=== PATIENT | male | born 1970 | race Caucasian/White ===

== ENCOUNTER 2017-02-27 07:23 | Emergency (ER) | payer OTHER ==
[~2017-02-27] VITALS: Ht 182.9 cm; Wt 103.3 kg
[~2017-02-27 07:23] MED LIST: CELEXA10 MG; FLEXERIL10 MG PO; MOBIC7.5 MG PO
[2017-02-27 08:46] LABS: POINT-OF-CARE METER ID UU13113702
[2017-02-27 08:59] LABS: HEMATOCRIT 36.4 % (38.0-50.0); MCH 29.9 PG (29.0-34.0); MCHC 33.8 G/DL (30.0-36.0); MCV 88.6 FL (86-99); MEAN PLAT.VOLUME 9.3 uM^3 (9.0-12.4); PLATELET COUNT 141 K/uL (156-360); RBC DIS.WIDTH-CV 12.5 % (11.8-14.6); RBC DIS.WIDTH-SD 40.6 % (39-53); RED BLOOD COUNT 4.11 M/uL (4.00-5.50)
[2017-02-27 09:09] LABS: CHLORIDE 103 mEq/L (99-109); POTASSIUM 3.3 mEq/L (3.7-5.4); SODIUM 138 mEq/L (136-147)
[2017-02-27 09:12] LABS: GLUCOSE 101 mg/dL (70-99)
[2017-02-27 09:13] LABS: ANION GAP 13 MEQ/L (2-14)
[2017-02-27 09:14] LABS: TOTAL BILIRUBIN 0.3 mg/dL (0.0-1.0)
[2017-02-27 09:15] LABS: ALKALINE PHOSPHATASE 66 IU/L (3-129); GFR ESTIMATE (CALCULATED) > 59 mL/min/; SERUM ETHYL ALCOHOL 194 mg/dL
[2017-02-27 09:16] LABS: UREA NITROGEN (BUN) 8 mg/dL (9-23)
[2017-02-27 10:37] LABS: ADD MIUA? NO; BILIRUBIN NEGATIVE; BLOOD NEGATIVE; COLOR COLORLESS ((YELLOW)); GLUCOSE (STRIP) NEGATIVE; KETONES NEGATIVE; LEUKOCYTES NEGATIVE; NITRITE NEGATIVE; PROTEIN (STRIP) NEGATIVE; SPECIFIC GRAVITY 1.003 (1.000-1.030); UCUL ADDED? NO; UROBILINOGEN 0.2 MG/DL (0.2-1.0)
[2017-02-27 12:14] VITALS: BP 116/81
== END 2017-02-27 12:34 | disposition home or self-care (01) ==
LOC: EME 07:23
PROVIDERS: Nurse Practitioner Family
PROC: 0HQ1XZZ Repair Face Skin, External Approach (ICD-10-PCS; principal; 2017-02-27)
DX: R55 Syncope and collapse (principal); S01.21XA Laceration without foreign body of nose, initial encounter; S00.11XA Contusion of right eyelid and periocular area, initial encounter; W01.198A Fall on same level from slipping, tripping and stumbling with subsequent striking against other object, initial encounter; Y92.002 Bathroom of unspecified non-institutional (private) residence as the place of occurrence of the external cause; F10.10 Alcohol abuse, uncomplicated; Y90.6 Blood alcohol level of 120-199 mg/100 ml; I10 Essential (primary) hypertension; F17.200 Nicotine dependence, unspecified, uncomplicated
CPT/HCPCS: 70450; 80053; 81003; 82948; 85027; 93005; 99281; 99284; G0480